=== PATIENT | female | born 1960 | race Caucasian/White ===

== ENCOUNTER → 2023-11-23 14:48 | Outpatient (REF) | payer OTHER, SELFPAY | LOC: RAD 14:48 | PROVIDERS: ATTENDING PHYSICIAN Surgery Vascular Surgery; FAMILY PHYSICIAN Family Medicine; OTHER PHYSICIAN Psychiatry & Neurology Neurology | DX: G54.0 Brachial plexus disorders (principal) | CPT/HCPCS: 93971 ==

== ENCOUNTER → 2023-12-15 11:46 | Outpatient (REF) | payer OTHER, SELFPAY ==
[2023-12-15 12:24] LABS: % Basophils 0.4 % (0-2); % Eosinophils 0.1 % (0-6); % Immature Granulocytes 0.4 % (0-0.5); % Lymphocytes 14.8 % (20.5-51.1); % Monocytes 4.6 % (1.7-9.3); % Neutrophils 79.7 % (42.2-75.2); Absolute Lymphocytes 1.5 10^3/uL (1.2-3.4); Absolute Monocytes 0.5 10^3/uL (0.1-0.6); Absolute Neutrophils 7.9 10^3/uL (1.4-6.5); Hematocrit 41.9 % (37.0-47.0); Hemoglobin 14.3 g/dL (12.0-16.0); Mean Corp Hgb Conc. 34.1 g/dL (33.0-37.0); Mean Corpuscular Hgb 30.4 pg (27.0-31.0); Mean Platelet Volume 9.5 fL (7.4-10.4); Nucleated Red Blood Cells % 0 %; Platelet Count 316 10^3/uL (130-400); Red Blood Cell Count 4.71 10^6/uL (4.20-5.40); Red Cell Dist. Width 12.7 % (11.5-14.5); White Blood Cell Count 9.9 10^3/uL (4.8-10.8)
[2023-12-15 12:52] LABS: ALT (SGPT) 36 U/L (0-35); AST (SGOT) 31 U/L (14-36); Albumin 4.9 g/dl (3.5-5.0); Alkaline Phosphatase 81 U/L (38-126); Blood Urea Nitrogen 16 mg/dl (7-17); Calcium 9.8 mg/dl (8.4-10.2); Carbon Dioxide 24 mmol/L (22-30); Chloride 105 mmol/L (98-107); Glucose 118 mg/dl (70-99); LDH 173 U/L (120-246); Potassium 3.8 mmol/L (3.5-5.1); Sodium 139 mmol/L (135-145); Total Bilirubin 0.5 mg/dl (0.2-1.3); Total Protein 7.9 g/dl (6.3-8.2); eGFR > 60.00
[2023-12-19 00:51] LABS: Albumin 4.73 g/dL (3.75-5.01); Alpha 1 Globulin 0.21 g/dL (0.19-0.46); Alpha 2 Globulin 0.84 g/dL (0.48-1.05); Free Kappa Light Chains,Quant 21.73 mg/L (3.30-19.40); Free Lambda Light Chains,Quant 12.18 mg/L (5.71-26.30); IgA 408 mg/dL (68-408); IgG 828 mg/dL (768-1632); IgM 31 mg/dL (35-263); Immunofixation Electrophoresis IFE Done; Kappa/Lambda Fr Light Ratio 1.78 (0.26-1.65); Total Protein-Electrophoresis 7.6 g/dL (6.3-8.2)
[2023-12-20 01:33] LABS: Cold Agglutinins <1:32 (<1:32)
[2023-12-21 01:59] LABS: Cryoglobulin NEG 72Hour (NEG 72Hour)
== END ==
LOC: REG 11:46
PROVIDERS: ATTENDING PHYSICIAN Internal Medicine; FAMILY PHYSICIAN Family Medicine; OTHER PHYSICIAN Surgery Vascular Surgery; REFERRING PHYSICIAN Psychiatry & Neurology Neurology
DX: R77.1 Abnormality of globulin (principal); D59.12 Cold autoimmune hemolytic anemia; D89.1 Cryoglobulinemia; D47.2 Monoclonal gammopathy
CPT/HCPCS: 36415; 80053; 82595; 82784; 83521; 83615; 84155; 84165; 85025; 86157; 86334; 86880